=== PATIENT | male | born 1960 | race Caucasian/White ===

== ENCOUNTER 2023-01-23 11:44 | Observation (INO) | payer BC ==
[2023-01-23] MEDS ORDERED: Sodium Chloride 0.9% 10 ML Syringe FLUSH PRN (12:00)
[2023-01-23] MEDS ORDERED: Albuterol/Ipratropium 3.0-0.5 MG/3 ML Neb Soln NEB PRN (12:00)
[2023-01-23] MEDS ORDERED: Ondansetron 4 MG/2 ML SDV IV PRN (12:00)
[2023-01-23] MEDS ORDERED: Albuterol 0.083% 2.5 MG/3 ML Neb Soln NEB PRN (12:00)
[2023-01-23] MEDS ORDERED: Ondansetron 4 MG Tab.DIS PO PRN (12:00)
[2023-01-23] MEDS ORDERED: Acetaminophen 325 MG Tab PO PRN (12:00)
[2023-01-23 12:36] LABS: BASOPHILS ABSOLUTE AUTO 0.01 10^3/uL (0.00-0.50); BASOPHILS PERCENT AUTO 0.1 % (0-1); EOSINOPHILS ABSOLUTE AUTO 0.01 10^3/uL (0.00-1.50); EOSINOPHILS PERCENT AUTO 0.1 % (0-6); HEMOGLOBIN 13.5 g/dL (14.0-18.0); IMMATURE GRAN ABSOLUTE AUTO 0.06 10^3/uL (0.00-0.49); IMMATURE GRAN PERCENT AUTO 0.6 % (0.0-4.9); LYMPHOCYTES ABSOLUTE AUTO 1.04 10^3/uL (0.60-5.00); LYMPHOCYTES PERCENT AUTO 10.2 % (24-44); MEAN CORPUSCULAR HEMOGLOBIN 32.9 pg (27.0-32.0); MEAN CORPUSCULAR HGB CONC 35.5 g/dL (32.0-36.0); MEAN CORPUSCULAR VOLUME 92.7 fL (83.0-97.0); MONOCYTES ABSOLUTE AUTO 0.85 10^3/uL (0.00-1.50); MONOCYTES PERCENT AUTO 8.4 % (0-10); NEUTROPHILS ABSOLUTE AUTO 8.18 x10^3/uL (1.80-8.00); NEUTROPHILS PERCENT AUTO 80.6 % (41-71); PLATELET COUNT,PLT 214 10^3/uL (150-400); WHITE BLOOD CELL COUNT,WBC 10.2 10^3/uL (4.0-11.0)
[2023-01-23] MEDS ORDERED: Iopamidol 755 Mg/ML 100 ML Bottle IVPUSH ONE (12:50)
[2023-01-23 13:08] LABS: CARBON DIOXIDE,CO2 26 mmol/L (21-32); CREATININE 1.3 mg/dL (0.7-1.3); ESTIMATED GFR 63 mL/min (>=60); SODIUM,NA 139 mEq/L (136-145)
[2023-01-23 13:14] LABS: CORONAVIRUS COVID-19 NAA NEGATIVE (NEGATIVE); INFLUENZA A NAA NEGATIVE (NEGATIVE); INFLUENZA B NAA NEGATIVE (NEGATIVE); RESPIRATORY SYNCYTIAL VIR NAA NEGATIVE (NEGATIVE)
[2023-01-23] MEDS ORDERED: [UNRECOGNIZED DRUG - OTHER] PO PRN (13:15)
[2023-01-23] MEDS ORDERED: PROMETHAZINE PO PRN (13:15)
[2023-01-23] MEDS ORDERED: DEXTROMETHORPHAN PO PRN (13:15)
[2023-01-23 13:24] LABS: ALANINE AMINOTRANSFERASE,ALT 49 U/L (12-78); ALBUMIN 3.7 g/dL (3.4-5.0); ALKALINE PHOSPHATASE 67 U/L (46-116); ASPARTATE AMNIOTRANSFERASE,AST 26 U/L (15-37); BILIRUBIN TOTAL 0.3 mg/dL (0.0-1.0); BLOOD UREA NITROGEN,BUN 26 mg/dL (7-18); C-REACTIVE PROTEIN 0.22 mg/dL (<=0.30); CALCIUM 9.3 mg/dL (8.4-10.1); CHLORIDE,CL 101 mEq/L (98-106); GLUCOSE RANDOM 153 mg/dL (75-99); MAGNESIUM 1.7 mg/dL (1.8-2.4); POTASSIUM,K 3.5 mEq/L (3.5-5.0); PROTEIN TOTAL,TP 7.2 g/dL (6.4-8.2)
[2023-01-23] MEDS ORDERED: Codeine/Promethazine 10-6.25 MG/5 ML Syrup 5 ML UD Cup PO PRN (15:42)
[2023-01-23] MEDS ORDERED: Enoxaparin 40 MG/0.4 ML Syringe SUBCUT SCH ×2 (16:00→20:00)
[2023-01-23] MEDS: methylPREDNISolone Sodium Succinate 40 MG/1 ML SDV IVPUSH SCH (17:20)
[2023-01-23] MEDS: Doxycycline 100 MG Tab PO SCH (17:20)
[2023-01-23] MEDS: Albuterol 0.083% 2.5 MG/3 ML Neb Soln NEB SCH ×2 (17:35→19:36)
[2023-01-23] MEDS ORDERED: Tamsulosin 0.4 MG Cap.ER PO SCH (20:00)
[2023-01-24] MEDS: methylPREDNISolone Sodium Succinate 40 MG/1 ML SDV IVPUSH SCH (04:23)
[2023-01-24] MEDS: Doxycycline 100 MG Tab PO SCH (07:27)
[2023-01-24] MEDS: Albuterol 0.083% 2.5 MG/3 ML Neb Soln NEB SCH ×2 (07:29→11:49)
[2023-01-24 08:00] LABS: EOSINOPHILS ABSOLUTE AUTO 0.01 10^3/uL (0.00-1.50); EOSINOPHILS PERCENT AUTO 0.1 % (0-6); HEMATOCRIT 37.5 % (42.0-52.0); HEMOGLOBIN 13.3 g/dL (14.0-18.0); IMMATURE GRAN ABSOLUTE AUTO 0.06 10^3/uL (0.00-0.49); IMMATURE GRAN PERCENT AUTO 0.7 % (0.0-4.9); LYMPHOCYTES ABSOLUTE AUTO 1.01 10^3/uL (0.60-5.00); LYMPHOCYTES PERCENT AUTO 11.5 % (24-44); MEAN CORPUSCULAR HGB CONC 35.5 g/dL (32.0-36.0); MEAN CORPUSCULAR VOLUME 93.1 fL (83.0-97.0); MONOCYTES ABSOLUTE AUTO 0.35 10^3/uL (0.00-1.50); NEUTROPHILS ABSOLUTE AUTO 7.36 x10^3/uL (1.80-8.00); NEUTROPHILS PERCENT AUTO 83.7 % (41-71); PLATELET COUNT,PLT 212 10^3/uL (150-400); RED BLOOD CELL COUNT 4.03 x10^6/uL (4.50-6.00); WHITE BLOOD CELL COUNT,WBC 8.8 10^3/uL (4.0-11.0)
[2023-01-24] MEDS ORDERED: FLUTICASONE INH SCH (08:00)
[2023-01-24] MEDS ORDERED: SALMETEROL INH SCH (08:00)
[2023-01-24] MEDS ORDERED: [UNRECOGNIZED DRUG - OTHER] INH SCH (08:00)
[2023-01-24] MEDS ORDERED: Hydrochlorothiazide 25 MG Tab PO SCH (08:00)
[2023-01-24] MEDS ORDERED: DIS INH SCH (08:00)
[2023-01-24] MEDS ORDERED: predniSONE 20 MG Tab PO SCH (08:00)
[2023-01-24] MEDS ORDERED: Lisinopril 20 MG Tab PO SCH (08:00)
[2023-01-24] MEDS ORDERED: atorvaSTATin 10 MG Tab PO SCH (08:00)
[2023-01-24 08:31] LABS: ALBUMIN 3.7 g/dL (3.4-5.0); BILIRUBIN TOTAL 0.4 mg/dL (0.0-1.0); CALCIUM 8.9 mg/dL (8.4-10.1); CREATININE 1.3 mg/dL (0.7-1.3); EST CRCL DRUG DOSING (CG) 61.61 mL/min; MAGNESIUM 1.9 mg/dL (1.8-2.4); PROTEIN TOTAL,TP 7.1 g/dL (6.4-8.2)
[2023-01-24 20:48] VITALS: BP 129/71; PULSE 98
== END 2023-01-24 12:55 | disposition home or self-care (01) ==
LOC: CC.MS 11:44
PROVIDERS: ADMIT Physician Assistant Medical; ATTEND Nurse Practitioner Family
DX: R55 Syncope and collapse (principal); R05.9 Cough, unspecified; R09.81 Nasal congestion; E78.00 Pure hypercholesterolemia, unspecified; I10 Essential (primary) hypertension; J45.909 Unspecified asthma, uncomplicated; G89.29 Other chronic pain; M54.9 Dorsalgia, unspecified; Z20.822 Contact with and (suspected) exposure to COVID-19; Z79.899 Other long term (current) drug therapy; Z79.52 Long term (current) use of systemic steroids; Z87.09 Personal history of other diseases of the respiratory system
CPT/HCPCS: 0241U; 36415; 70450; 71260; 80053; 83735; 84484; 85025; 85379; 86140; 93005; 93242; 93880; 94640; 96372; 96374; 96376; A9270-GY; G0378; J1650; J2920; J7512; J7613-GY; Q9967

== ENCOUNTER 2023-02-17 15:55 | Emergency (ER) | payer BC ==
[2023-02-17] MEDS: Lidocaine 1% 5 ML VIAL INJECT ONE (16:20)
[2023-02-17] MEDS: Ketorolac 30 MG/ML SDV IVPUSH ONE (16:20)
[2023-02-17] MEDS: ceFAZolin 2 GM Vial IVPUSH ONE (16:21)
[2023-02-17 16:34] VITALS: BP 103/62; PULSE 79
[2023-02-17] MEDS: Diphtheria,Pertussis(Acell),Tetanus Vaccine 0.5 ML Syringe IM ONE (17:00)
[2023-02-17] MEDS: Take Home: Acetaminophen/oxyCODONE 325-5 MG, 2 Tab Pack PO ONE (17:49)
[2023-02-17] MEDS: Bacitracin/Neomycin/Polymyxin B Oint 0.9 GM U/D Packet TOP ONE (17:49)
== END 2023-02-17 17:30 | disposition home or self-care (01) ==
LOC: CC.ED 15:55
DX: S62.661B Nondisplaced fracture of distal phalanx of left index finger, initial encounter for open fracture (principal); S68.111A Complete traumatic metacarpophalangeal amputation of left index finger, initial encounter; E78.00 Pure hypercholesterolemia, unspecified; I10 Essential (primary) hypertension; Z23 Encounter for immunization; Z91.018 Allergy to other foods; Z79.899 Other long term (current) drug therapy; W23.1XXA Caught, crushed, jammed, or pinched between stationary objects, initial encounter; Y92.89 Other specified places as the place of occurrence of the external cause; Y99.0 Civilian activity done for income or pay
CPT/HCPCS: 11760; 73140-F1; 90471; 90715; 96374; 96375; 99283-25; A9270-GY; J0690; J1885; J3490

== ENCOUNTER → 2023-02-21 | Day surgery (SDC) | payer BC ==
[~2023-02-21] MED LIST: Ketamine 200 MG/20 ML MDV ONE; Ketorolac 30 MG/ML SDV ONE; Lactated Ringers 1,000 ML IV SCH; Lidocaine 0.5% 50 ML SDV ONE; Midazolam 1 MG/ML 2 ML SDV ONE; Propofol 200 MG/20 ML SDV ONE; fentaNYL 50 MCG/ML SDV ONE
[2023-02-21 13:17] VITALS: BP 128/70; PULSE 79
== END ==
LOC: CC.SDS 10:33
PROVIDERS: ATTEND Surgery
DX: G56.03 Carpal tunnel syndrome, bilateral upper limbs (principal); J45.909 Unspecified asthma, uncomplicated; N40.0 Benign prostatic hyperplasia without lower urinary tract symptoms; M54.50 Low back pain, unspecified; G89.29 Other chronic pain; I10 Essential (primary) hypertension; Z79.899 Other long term (current) drug therapy
CPT/HCPCS: 64721; J1885; J2250; J2704; J3010; J7120; 01810; J3490

== ENCOUNTER → 2023-03-28 | Day surgery (SDC) | payer BC ==
[~2023-03-28] MED LIST changes: +Ondansetron 4 MG/2 ML SDV ONE
[2023-03-28] MEDS: Lactated Ringers 1,000 ML IV SCH (11:34)
[2023-03-28] MEDS: Lidocaine 1% 30 ML SDV SUBCUT ONE (12:38)
[2023-03-28 16:52] VITALS: BP 134/76; PULSE 67
== END ==
LOC: CC.SDS 11:10
PROVIDERS: ATTEND Surgery
DX: G56.02 Carpal tunnel syndrome, left upper limb (principal); J45.909 Unspecified asthma, uncomplicated; I10 Essential (primary) hypertension; N40.0 Benign prostatic hyperplasia without lower urinary tract symptoms; Z79.899 Other long term (current) drug therapy
CPT/HCPCS: 01810; J1885; J2250; J2405; J2704; J3010; J3490; J7120

== ENCOUNTER 2023-09-06 11:00 | Day surgery (SDC) | payer BC ==
[2023-09-06] MEDS: Lactated Ringers 1,000 ML IV SCH (11:22)
[2023-09-06] MEDS ORDERED: fentaNYL 50 MCG/ML SDV ONE (11:40)
[2023-09-06] MEDS ORDERED: Ketamine 200 MG/20 ML MDV ONE (11:40)
[2023-09-06] MEDS ORDERED: Propofol 200 MG/20 ML SDV ONE (11:40)
[2023-09-06] MEDS ORDERED: Midazolam 1 MG/ML 2 ML SDV ONE (11:40)
[2023-09-06 12:49] VITALS: BP 153/79; PULSE 69
== END 2023-09-06 13:00 | disposition home or self-care (01) ==
LOC: CC.SDS 11:00
PROVIDERS: ATTEND Family Medicine
DX: Z12.11 Encounter for screening for malignant neoplasm of colon (principal); I10 Essential (primary) hypertension; E78.00 Pure hypercholesterolemia, unspecified; J45.909 Unspecified asthma, uncomplicated; N40.0 Benign prostatic hyperplasia without lower urinary tract symptoms; G47.33 Obstructive sleep apnea (adult) (pediatric); Z79.899 Other long term (current) drug therapy
CPT/HCPCS: 00812; J2250; J2704; J3010; J3490; J7120